=== PATIENT | male | born 1995 | race Caucasian/White ===

== ENCOUNTER 2017-08-28 21:51 | Inpatient (IN) | payer OTHER ==
[~2017-08-28 21:51] MED LIST: ISOVUE-370 76%-LOCM 1 ML ONE
[2017-08-28 22:08] LABS: Hemoglobin 15.1 g/dL (14.0-18.0); Mean Corpuscular HGB CONC 33.7 g/dL (32.0-36.0); Mean Corpuscular Hemoglobin 29.7 pg (25.0-35.0); Mean Corpuscular Volume 88.1 fl (77.0-87.0); Mean Platelet Volume 6.7 fL (7.4-10.4); Platelet Count 358 thou/uL (130-400); RBC Distribution Width 12.4 % (11.5-14.5); Red Blood Cell (RBC) Count 5.07 mill/uL (4.00-5.20); White Blood Cell (WBC) Count 25.4 thou/uL (4.8-10.8)
[2017-08-28] MEDS ORDERED: Fentanyl 100 MCG/2 ML VIAL ONE (22:08)
[2017-08-28] MEDS ORDERED: Ketorolac Tromethamine 30 MG/ML VIAL ONE (22:08)
[2017-08-28 22:24] LABS: Eosinophils 4 % (0-10); Lymphocytes 34 % (28-48); MDiff Complete? YES; Monocytes 3 % (0-4); Neutrophil 54 % (31-61); PLT Morphology Comment Appears Adequate; RBC Morphology Normal; Reactive Lymphocytes 5 % (0-10)
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
[2017-08-28 22:50] LABS: ALT (SGPT) 36 U/L (8-55); AST (SGOT) 35 U/L (10-45); Albumin 3.8 g/dL (3.5-5.0); Alkaline Phosphatase 93 U/L (Less than 750); Anion Gap 14 mmol/L (10-20); BUN (Urea Nitrogen) 12 mg/dL (8.4-21.0); Bilirubin, Total 0.2 mg/dL (0.2-1.2); Calc. Creatinine Clearance 0 mL/min (70-130); Calcium 8.9 mg/dL (7.8-10.44); Carbon Dioxide 23 mmol/L (22-29); Chloride 106 mmol/L (98-107); Estimated GFR-MDRD 66; Globulin 2.4 g/dL (2.4-3.5); Glucose 108 mg/dL (70-105); Potassium 3.7 mmol/L (3.5-5.1); Protein, Total 6.2 g/dL (6.0-8.3); Sodium 139 mmol/L (136-145)
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
--- NOTE | 2017-08-29 00:05 | RAD ---
RIGHT ANKLE THREE VIEWS: 08/28/17 COMPARISON: None. HISTORY: Trauma, pain. FINDINGS: There is an obliquely oriented 4 mm fracture fragment at the base of the fifth metatarsal. The talar dome and ankle mortise appears intact. IMPRESSION: Fracture at the base of the fifth metatarsal as detailed above. POS: [facility]
[2017-08-29] MEDS ORDERED: Ondansetron ODT 4 MG TAB ONE (02:29)
[2017-08-29 02:59] LABS: Bilirubin Negative (Negative); Blood, Urine Moderate (Negative); Clarity CLEAR (Clear); Glucose, Urine (Dipstick) Negative (Negative); Leukocyte Negative (Negative); Nitrite Negative (Negative); Protein, Urine (Dipstick) 30 mg/dL (Neg-Trace); pH, Urine 6.5 (5.0-9.0)
[2017-08-29 03:01] LABS: Bacteria/HPF None Seen HPF (None Seen); Pathc Cast-AUWi Flag 1.59 (0-2.49); RBC/HPF 21-50 HPF (0-3)
[2017-08-29 03:07] LABS: Hyaline Casts/LPF 0-3 HYALINE CAST LPF (0-3 Hyaline); Trichomonas/HPF None Seen HPF (None Seen); Yeast-All Forms None Seen HPF (None Seen)
[2017-08-29 03:08] LABS: Oval Fat Bodies/HPF None Seen HPF (None Seen); Renal Epithelial None Seen HPF (0-3); Sperm/HPF None Seen HPF (None Seen); Transitional Epithelial NONE SEEN HPF (0-3)
[2017-08-29 03:09] LABS: Specific Gravity, Urine Greater than 1.060 (1.002-1.036)
[2017-08-29] MEDS ORDERED: Fentanyl 100 MCG/2 ML VIAL ONE (03:32)
[2017-08-29] MEDS ORDERED: traMADol HCl 50 MG TAB PO PRN (04:58)
[2017-08-29] MEDS ORDERED: Dextrose 5% in Water 1,000 ML IV PRN (04:58)
[2017-08-29] MEDS ORDERED: Dextrose 50% Abboject 50 ML SYRINGE SLOW IVP PRN (04:58)
[2017-08-29] MEDS ORDERED: Sodium Chloride 0.9% 1,000 ML IV SCH ×2 (05:00→21:30)
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
[2017-08-29] MEDS: Acetaminophen 500 MG TAB PO SCH ×3 (05:29→17:14)
[2017-08-29] MEDS: traMADol HCl 50 MG TAB PO SCH ×3 (05:30→17:14)
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
--- NOTE | 2017-08-29 07:35 | RAD ---
3 VIEWS RIGHT FOOT: Date: 08/28/17 HISTORY: Right foot pain. FINDINGS: The Lisfranc joint is normally aligned. There is suggestion of a small avulsion fracture seen at the base of the fifth metatarsal. There is also an osseous density seen adjacent to the medial aspect of the navicular bone. This may represent an accessory center of ossification, but there is prominent so ft tissue swelling adjacent to this region with irregularity of the margin in this region and this ma y represent a fracture involving the medial aspect of the navicular bone. There is a small avulsion f racture seen at the tip of the medial malleolus, which is nondisplaced. There is subcutaneous soft ti ssue swelling about the foot. No dislocation seen. IMPRESSION: 1. Tiny nondisplaced avulsion fractures involving the medial malleolus and base of the fifth metatar brennen. In addition, there is an osseous density at the medial aspect of the navicular bone, which may b e related to an overlying accessory center of ossification, but given the irregularity and adjacent s oft tissue swelling, findings are worrisome for an avulsion fracture involving the medial aspect of t he navicular bone. 2. Subcutaneous soft tissue swelling about the foot. POS: [facility]
[2017-08-29 07:44] VITALS: BMI 46.4
[2017-08-29] MEDS ORDERED: Scopolamine 1.5 mg/72 hour Patch TD SCH (08:00)
[2017-08-29] MEDS: Famotidine 20 MG TAB PO SCH ×2 (08:52→20:25)
[2017-08-29] MEDS ORDERED: Famotidine/PF 20 mg/2ml Vial SLOW IVP SCH (09:00)
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
--- NOTE | 2017-08-29 16:33 | ADD-PRG ---
DATE OF SERVICE: 08/29/2017 ADDENDUM Reviewed thoracic imaging and cervical imaging of the spine as well as the thoracic spine, spinous pr ocess fractures of, T4, T5, T6 and T7 which looked acute. There is an old spinous process fracture o f T10, which looks corticated at T11-12. There is a bit of a change in spinal alignment with slight kyphosis and some prominent posterior osteophytes. Mr. Porter had a previous thoracic spine injury causing the T10 spinous process fracture in T11-12 change of angulation. He has new spinous process fractures in the upper thoracic spine, TLSO bracin g and still recommendation and there is no surgery indicated. We will follow up in clinic.
[2017-08-30] MEDS: traMADol HCl 50 MG TAB PO SCH ×3 (00:05→18:57)
[2017-08-30] MEDS: Acetaminophen 500 MG TAB PO SCH ×4 (00:06→18:56)
[2017-08-30 05:30] LABS: #Eosinphils 0.4 thou/uL (0.0-0.7); #Lymphocytes 2.8 thou/uL (1.20-3.40); #Monocytes 0.8 thou/uL (0.11-0.59); #Neutrophils 3.9 thou/uL (1.40-6.50); %Basophils 0.4 % (0.0-1.0); %Eosinophils 4.5 % (0.0-10.0); %Lymphocytes 35.2 % (28.0-48.0); %Monocytes 9.6 % (0.0-4.0); %Neutrophils 50.2 % (31.0-61.0); Hemoglobin 9.9 g/dL (14.0-18.0); Mean Corpuscular HGB CONC 33.8 g/dL (32.0-36.0); Mean Corpuscular Hemoglobin 29.8 pg (25.0-35.0); Mean Corpuscular Volume 88.1 fl (77.0-87.0); Mean Platelet Volume 6.5 fL (7.4-10.4); Platelet Count 177 thou/uL (130-400); RBC Distribution Width 12.2 % (11.5-14.5); Red Blood Cell (RBC) Count 3.34 mill/uL (4.00-5.20); White Blood Cell (WBC) Count 7.9 thou/uL (4.8-10.8)
[2017-08-30 05:35] LABS: Anion Gap 7 mmol/L (10-20); BUN (Urea Nitrogen) 8 mg/dL (8.4-21.0); Calc. Creatinine Clearance 368 mL/min (70-130); Calcium 8.2 mg/dL (7.8-10.44); Carbon Dioxide 28 mmol/L (22-29); Chloride 107 mmol/L (98-107); Estimated GFR-MDRD Greater than 90; Glucose 100 mg/dL (70-105); Magnesium 1.8 mg/dL (1.7-2.2); Phosphorus 3.1 mg/dL (2.3-4.7); Potassium 3.8 mmol/L (3.5-5.1); Sodium 138 mmol/L (136-145)
[2017-08-30] MEDS: Famotidine 20 MG TAB PO SCH ×2 (09:32→21:27)
[2017-08-30] MEDS ORDERED: traMADol HCl 50 MG TAB PO SCH (10:31)
[2017-08-30] MEDS ORDERED: traMADol HCl 50 MG TAB PO PRN (10:32)
[2017-08-30] MEDS: Ibuprofen 800 MG TAB PO SCH ×2 (10:52→18:58)
[2017-08-30] MEDS ORDERED: Rib Fracture Protocol PO SCH (13:00)
[2017-08-30] MEDS ORDERED: Cyclobenzaprine 10 MG TAB PO PRN (13:00)
[2017-08-30] MEDS ORDERED: Bisacodyl 10 MG SUPP PR SCH (14:00)
[2017-08-30] MEDS: Gabapentin 300 MG CAP PO SCH ×2 (15:06→21:27)
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
[2017-08-30] MEDS ORDERED: Polyethylene Glycol 3350 17 GM Packet PO SCH (19:45)
[2017-08-30 20:13] LABS: Bilirubin Negative (Negative); Blood, Urine Negative (Negative); Clarity CLEAR (Clear); Glucose, Urine (Dipstick) Negative (Negative); Leukocyte Negative (Negative); Nitrite Negative (Negative); Protein, Urine (Dipstick) Negative (Neg-Trace); Specific Gravity, Urine 1.027 (1.002-1.036)
[2017-08-30] MEDS: Senokot S 8.6-50 MG TAB PO SCH (21:27)
[2017-08-31] MEDS: traMADol HCl 50 MG TAB PO SCH ×4 (00:45→18:09)
[2017-08-31] MEDS: Acetaminophen 500 MG TAB PO SCH ×4 (00:45→18:09)
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
[2017-08-31] MEDS: Ibuprofen 800 MG TAB PO SCH ×3 (02:52→18:10)
[2017-08-31 04:39] LABS: #Eosinphils 0.5 thou/uL (0.0-0.7); #Lymphocytes 2.3 thou/uL (1.20-3.40); #Monocytes 0.6 thou/uL (0.11-0.59); #Neutrophils 4.8 thou/uL (1.40-6.50); %Basophils 0.6 % (0.0-1.0); %Eosinophils 5.5 % (0.0-10.0); %Lymphocytes 27.9 % (28.0-48.0); %Monocytes 7.7 % (0.0-4.0); %Neutrophils 58.3 % (31.0-61.0); Hemoglobin 9.6 g/dL (14.0-18.0); Mean Corpuscular HGB CONC 33.7 g/dL (32.0-36.0); Mean Corpuscular Hemoglobin 29.7 pg (25.0-35.0); Mean Platelet Volume 6.9 fL (7.4-10.4); Platelet Count 193 thou/uL (130-400); RBC Distribution Width 12.1 % (11.5-14.5); Red Blood Cell (RBC) Count 3.22 mill/uL (4.00-5.20); White Blood Cell (WBC) Count 8.3 thou/uL (4.8-10.8)
[2017-08-31] MEDS: Senokot S 8.6-50 MG TAB PO SCH ×2 (09:35→21:53)
[2017-08-31] MEDS: Polyethylene Glycol 3350 17 GM Packet PO SCH (09:35)
[2017-08-31] MEDS: Enoxaparin Sodium 40 MG/0.4 ML SYRINGE SC SCH ×2 (09:35→21:55)
[2017-08-31] MEDS: Famotidine 20 MG TAB PO SCH ×2 (09:35→21:52)
[2017-08-31] MEDS: Gabapentin 300 MG CAP PO SCH ×3 (09:35→21:53)
[2017-08-31] MEDS: Bisacodyl 10 MG SUPP PR SCH (09:39)
[2017-08-31] MEDS: Ondansetron ODT 4 MG TAB PO PRN (10:45)
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
[2017-09-01] MEDS: Acetaminophen 500 MG TAB PO SCH ×5 (00:57→23:07)
[2017-09-01] MEDS: traMADol HCl 50 MG TAB PO SCH ×5 (00:57→23:07)
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
[2017-09-01] MEDS: Ibuprofen 800 MG TAB PO SCH ×3 (04:01→17:53)
[2017-09-01 08:15] LABS: Bilirubin Small (Negative); Blood, Urine Negative (Negative); Clarity TURBID (Clear); Glucose, Urine (Dipstick) Negative (Negative); Leukocyte Negative (Negative); Nitrite Negative (Negative); Protein, Urine (Dipstick) Trace mg/dL (Neg-Trace); Specific Gravity, Urine 1.037 (1.002-1.036)
[2017-09-01 08:24] LABS: Anion Gap 9 mmol/L (10-20); BUN (Urea Nitrogen) 10 mg/dL (8.4-21.0); Calc. Creatinine Clearance 447 mL/min (70-130); Calcium 8.1 mg/dL (7.8-10.44); Carbon Dioxide 27 mmol/L (22-29); Chloride 104 mmol/L (98-107); Estimated GFR-MDRD Greater than 90; Glucose 95 mg/dL (70-105); Potassium 3.5 mmol/L (3.5-5.1); Sodium 136 mmol/L (136-145)
[2017-09-01] MEDS: Ferrous Sulfate 325 MG TAB PO SCH ×2 (08:50→17:53)
[2017-09-01] MEDS: Bisacodyl 10 MG SUPP PR SCH (08:51)
[2017-09-01] MEDS: Ascorbic Acid 500 mg Chewable Tablet PO SCH (08:51)
[2017-09-01] MEDS: Famotidine 20 MG TAB PO SCH ×2 (08:52→20:07)
[2017-09-01] MEDS: Enoxaparin Sodium 40 MG/0.4 ML SYRINGE SC SCH ×2 (08:52→20:08)
[2017-09-01] MEDS: Polyethylene Glycol 3350 17 GM Packet PO SCH (08:52)
[2017-09-01] MEDS: Senokot S 8.6-50 MG TAB PO SCH ×2 (08:52→20:07)
[2017-09-01] MEDS: Gabapentin 300 MG CAP PO SCH ×3 (08:52→20:08)
[2017-09-01] MEDS ORDERED: Bupropion 150 MG XL TAB PO SCH (12:00)
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
[2017-09-01] MEDS: Ondansetron ODT 4 MG TAB PO PRN (14:38)
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
[2017-09-02] MEDS: Ibuprofen 800 MG TAB PO SCH ×2 (05:15→09:33)
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
[2017-09-02] MEDS: Acetaminophen 500 MG TAB PO SCH ×2 (05:51→12:02)
[2017-09-02] MEDS: traMADol HCl 50 MG TAB PO SCH ×2 (05:51→12:02)
[2017-09-02] MEDS ORDERED: Bupropion 150 MG XL TAB PO SCH (09:00)
[2017-09-02] MEDS: Famotidine 20 MG TAB PO SCH (09:32)
[2017-09-02] MEDS: Polyethylene Glycol 3350 17 GM Packet PO SCH (09:33)
[2017-09-02] MEDS: Enoxaparin Sodium 40 MG/0.4 ML SYRINGE SC SCH (09:33)
[2017-09-02] MEDS: Ferrous Sulfate 325 MG TAB PO SCH (09:33)
[2017-09-02] MEDS: Ascorbic Acid 500 mg Chewable Tablet PO SCH (09:33)
[2017-09-02] MEDS: Gabapentin 300 MG CAP PO SCH (09:33)
[2017-09-02] MEDS: Senokot S 8.6-50 MG TAB PO SCH (09:33)
[2017-09-02] MEDS: Bisacodyl 10 MG SUPP PR SCH (09:42)
[2017-09-02 12:40] VITALS: BP 112/67; TEMP 97.9
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
[2017-09-04] MEDS ORDERED: Bupropion 150 MG XL TAB PO SCH (21:00)
== END 2017-09-02 15:19 | disposition home health service (06) | DRG 552 ==
LOC: ERS 21:51 → SURG B 08-29 02:48
PROVIDERS: ADMIT Specialist; ATTEND Specialist
DX: S22.059A Unspecified fracture of T5-T6 vertebra, initial encounter for closed fracture (principal); S32.029A Unspecified fracture of second lumbar vertebra, initial encounter for closed fracture; S82.54XA Nondisplaced fracture of medial malleolus of right tibia, initial encounter for closed fracture; D64.9 Anemia, unspecified; E66.9 Obesity, unspecified; S32.039A Unspecified fracture of third lumbar vertebra, initial encounter for closed fracture; S32.049A Unspecified fracture of fourth lumbar vertebra, initial encounter for closed fracture; S32.059A Unspecified fracture of fifth lumbar vertebra, initial encounter for closed fracture; F17.210 Nicotine dependence, cigarettes, uncomplicated; S22.079A Unspecified fracture of T9-T10 vertebra, initial encounter for closed fracture; S22.069A Unspecified fracture of T7-T8 vertebra, initial encounter for closed fracture; S92.251A Displaced fracture of navicular [scaphoid] of right foot, initial encounter for closed fracture; V09.20XA Pedestrian injured in traffic accident involving unspecified motor vehicles, initial encounter; S92.351A Displaced fracture of fifth metatarsal bone, right foot, initial encounter for closed fracture; R33.0 Drug induced retention of urine; T48.1X5A Adverse effect of skeletal muscle relaxants [neuromuscular blocking agents], initial encounter; T44.3X5A Adverse effect of other parasympatholytics [anticholinergics and antimuscarinics] and spasmolytics, initial encounter; R31.9 Hematuria, unspecified; Z68.54 Body mass index [BMI] pediatric, 95th percentile for age to less than 120% of the 95th percentile for age
CPT/HCPCS: 29515; 36415; 70450; 71045; 71260; 72125; 72170; 74177; 80048; 80053; 81003; 81015; 83735; 84100; 85025; 86850; 86900; 86901; 87086; 94640; 94760; 96361; 96374; 96375; 96376; G0390; G8978-GP-CL; G8979-GP-CI; G8987-GO-CL; G8988-GO-CJ; J1650; J1885; J3010; J7620; L0190; L4386; Q0162